=== PATIENT | female | born 1985 | race Caucasian/White ===

== ENCOUNTER 2023-09-02 12:06 | Emergency (ER) | payer OTHER, SELFPAY ==
[2023-09-02 12:12] VITALS: BP 115/66; PULSE 68; RESP 14; TEMP 36.6; O2SAT 100
--- NOTE | 2023-09-02 12:21 | ED.URI ---
HPI - URI/Sore Throat General Chief Complaint: Upper Respiratory Infection Stated Complaint: sinus issues Time Seen by Provider: 09/02/23 12:21 Source: patient, RN notes reviewed and old records reviewed Mode of arrival: ambulatory Limitations: no limitations History of Present Illness HPI Narrative: 38 year old female who presents to express care with complaints of sinus congestion,sinus pressure with drainage since Monday with initially body aches. Patient reports that she was in [place] for a conference and had to come home. She reports that she had 2 to 3 days of fevers up to 102F with none since . .Patient reports that her nose feels clogged with some soreness of her throat. Patient reports that she has taken Tylenol or Ibuprofen for her fevers and discomfort only. Patient denies any shortness of breath, nausea and vomiting or diarrhea. MD elicited complaint: fever, sore throat, rhinorrhea, nasal congestion, sinus pain and other (sinus issues; initially bodyaches and fevers) Onset (ago): day(s) (6) Severity: moderate Able to tolerate fluids by mouth: Yes Treatments prior to arrival: acetaminophen and ibuprofen Related Data Allergies Allergy/AdvReac Type Severity Reaction Status Date / Time No Known Allergies Allergy Unverified 12/30/17 17:40 Review of Systems Review of Systems: CONSTITUTIONAL: Reports malaise, chills, sweats, or fever. EYES: Denies visual changes, redness, or discharge. ENT: Reports rhinorrhea, congestion, sinus pain, no otalgia and positive for soreness of throat. CARDIOVASCULAR: Denies chest pain, palpitations, or edema. RESPIRATORY: Reports occasional cough.? Denies dyspnea. GASTROINTESTINAL: Denies abdominal pain, nausea, vomiting, diarrhea SKIN: Denies rash or itching. MUSCULOSKELETAL: reports initally some myalgia. NEUROLOGIC: Reports headache. All systems reviewed & are unremarkable except as noted in HPI and below PMFSH Past Medical History Medical History (Updated 09/02/23 @ 12:40 by Swapna Mercedes NP) Seizure Surgical History Surgical History H/O section x4 Hx of tonsillectomy Social History Social History Smoking status: Former smoker Comments At time of signature, agree with nursing past medical, surgical, social and family history. There is no relevant family history pertinent to the presenting complaint Exam Narrative: GENERAL: Well-appearing, well-nourished, and in no acute distress. HEAD: Normocephalic EYES: PERRLA, conjunctivae clear ENT: Nares clear, turbinates edematous and erythematous, clear to light yellow tinged discharge.sinus pressure and headache pain. Mucous membranes moist. TM pearly valverde with dull light reflex bilaterally; no tragal tenderness. Oropharynx erythematous without lesions. Tonsils not present and throat without exudate, no drooling, no hoarseness, no trismus, uvula midline.post nasal drainage noted,copious post nasal drainage. NECK: Supple. No lymphadenopathy CHEST: Clear to auscultation, breath sounds equal. No wheezing, rhonchi, rales, or stridor. No respiratory distress, speaks in full sentences. SAO2 100% on room air HEART: Regular rate and rhythm. No murmur heard. SKIN: Warm, dry, no rash. NEURO: Alert and oriented x3. PSYCH: Normal mood and affect Course Course Emergency Course: Patient is aware of diagnosis, understands and agrees to treatment plan.? Anticipatory guidance given.? Patient agrees to follow-up as directed and is aware of reasons to seek care at the emergency department. Portions of this record may have been created with voice recognition software Level of Care: Express Care Visit Vital Signs Vital signs: Vital Signs Temperature 36.6 C 09/02/23 12:12 Pulse Rate 68 09/02/23 12:12 Respiratory Rate 14 09/02/23 12:12 Blood Pressure 115/66
== END 2023-09-02 12:49 | disposition home or self-care (01) ==
PROVIDERS: Emergency Provider Registered Nurse; PCP Physician Assistant
DX: J01.40 Acute pansinusitis, unspecified (principal); Z87.891 Personal history of nicotine dependence
CPT/HCPCS: 99203; G0463